=== PATIENT | male | born 1970 | race Caucasian/White ===

== ENCOUNTER 2017-04-14 16:42 | Emergency (ER) | payer BC ==
[~2017-04-14] VITALS: Ht 167.6 cm; Wt 80.0 kg
[~2017-04-14 16:42] MED LIST: ASPEC81 PO; TPRSR50 PO
[2017-04-14 16:44] VITALS: TEMP 37; Ht 167.6 cm; Wt 80.0 kg
[2017-04-14] MEDS ORDERED: SODIUM CHLORIDE 0.9% 1000ML 1,000 ML IV STA (17:34)
[2017-04-14] MEDS ORDERED: FAMOTIDINE 20MG/102 ML D5W IV STA (17:34)
[2017-04-14] MEDS ORDERED: GI COCKTAIL PO STA (17:34)
--- NOTE | 2017-04-14 17:43 | EMERGENCY ROOM VISIT NOTE ---
History Report prepared by Lorenza: Chani Calabrese Under the Supervision of: Dr. Ciro Bocanegra M.D. First contact with patient: 17:28 Chief Complaint: CARDIAC ASSESSMENT Stated Complaint: BURNING SENSATION IN CHEST,LIGHTHEADED,FEEL COLD Nursing Triage Summary: pt to the ED with c/o burning in chest light headed feeling woozy and neck felt puffy/pressure that started today no SOB History of Present Illness The patient is a 47 year old male who presents to the Emergency Room with complaints of a cardiac assessment today. The patient states that he has been having a heartburn sensation in his chest and swelling in the neck. The patient reports that the burning sensation in his chest is mild right now, and that he no longer feels the swelling in his neck. He also reports feeling fatigued but denies having a sore throat, nausea, and vomiting. The patient also denies light -headedness and dizziness. He reports that he also felt hypotensive and flush this week. He states that his is beginning to get sick. The patient states that he saw his scale attendant this week. The patient reports that he has atrial fibrillation and takes 50 mg of Metoprolol. He denies having a history of smoking, diabetes, major surgeries, and blood clots. He denies a family history of heart attacks. Source of History: patient Onset: today Position: other (global) Quality: other (cardiac assessment ) Associated Symptoms: + fatigue, No sorethroat, No nausea, No vomiting, No weakness (denies light-headedness and dizziness) Note: additional symptoms: burning sensation in his chest, swelling of neck Review of Systems See HPI for pertinent positives and negatives. A total of ten systems were reviewed and were otherwise negative. Past Medical & Surgical Medical Problems: (1) Atrial fibrillation with RVR Family History FH: hyperlipidemia Social History Smoking Status: Never Smoker Alcohol Use: occasionally Drug Use: none Marital Status: Housing Status: lives with family Occupation Status: unemployed Current/Historical Medications Scheduled Aspirin (Aspirin EC Low Dose), 81 MG PO QAM Metoprolol Succinate (Metoprolol Succinate ER), 50 MG PO QAM Allergies Coded Allergies: No Known Allergies (Unverified , 04/14/17) Physical Exam Vital Signs Date Time Temp Pulse Resp B/P (MAP) Pulse Ox O2 Delivery O2 Flow Rate FiO2 04/14/17 18:44 78 20 133/88 100 Room Air 04/14/17 18:43 100 Room Air 04/14/17 16:44 37.0 72 16 152/105 97 Room Air Physical Exam GENERAL: Awake, alert, well-appearing, in no distress HENT: Normocephalic, atraumatic. Oropharynx unremarkable. Dry mucous membranes. EYES: Normal conjunctiva. Sclera non-icteric. NECK: Supple. No nuchal rigidity. FROM. No JVD. RESPIRATORY: Clear to auscultation. CARDIAC: Regular rate, normal rhythm. Extremities warm and well perfused. Pulses equal. ABDOMEN: Soft, non-distended. No tenderness to palpation. No rebound or guarding. No masses. RECTAL: Deferred. MUSCULOSKELETAL: Chest examination reveals no tenderness. The back is symmetrical on inspection without obvious abnormality. There is no CVA tenderness to palpation. No joint edema. LOWER EXTREMITIES: Calves are equal size bilaterally and non-tender. No edema. No discoloration. NEURO: Normal sensorium. No sensory or motor deficits noted. SKIN: No rash or jaundice noted. Medical Decision & Procedures ER Provider Diagnostic Interpretation: X-ray: Per my interpretation, radiologist review. CHEST ONE VIEW PORTABLE CLINICAL HISTORY: CHEST PAIN pain COMPARISON STUDY: No previous studies for comparison. FINDINGS: The bones soft tissues and hemidiaphragms are normal. The cardiomediastinal silhouette is normal. The lungs are clear. The pulmonary vasculature is normal. IMPRESSION: Negative chest. The above report was generated using voice recognition software. It may contain grammatical, syntax or spelling errors. Electronically signed by: Gage Dominguez M.D. 04/14/2017 6:12 PM Dictated Date/Time: 04/14/2017 6:02 PM Laboratory Results 04/14/17 18:15 Red Blood Count 5.53, Mean Corpuscular Volume 81.9, Mean Corpuscular Hemoglobin 29.8, Mean Corpuscular Hemoglobin Concent 36.4, Mean Platelet Volume 9.6, Neutrophils (%) (Auto) 77.8, Lymphocytes (%) (Auto) 14.4, Monocytes (%) (Auto) 5.5, Eosinophils (%) (Auto) 2.1, Basophils (%) (Auto) 0.1, Neutrophils # (Auto) 5.46, Lymphocytes # (Auto) 1.01, Monocytes # (Auto) 0.39, Eosinophils # (Auto) 0.15, Basophils # (Auto) 0.01 04/14/17 18:15 Test 04/14/17 18:15 White Blood Count 7.03 K/uL (4.8-10.8) Red Blood Count 5.53 M/uL (4.7-6.1) Hemoglobin 16.5 g/dL (14.0-18.0) Hematocrit 45.3 % (42-52) Mean Corpuscular Volume 81.9 fL (80-100) Mean Corpuscular Hemoglobin 29.8 pg (25-34) Mean Corpuscular Hemoglobin Concent 36.4 g/dl (32-36) Platelet Count 213 K/uL (130-400) Mean Platelet Volume 9.6 fL (7.4-10.4) Neutrophils (%) (Auto) 77.8 % Lymphocytes (%) (Auto) 14.4 % Monocytes (%) (Auto) 5.5 % Eosinophils (%) (Auto) 2.1 % Basophils (%) (Auto) 0.1 % Neutrophils # (Auto) 5.46 K/uL (1.4-6.5) Lymphocytes # (Auto) 1.01 K/uL (1.2-3.4) Monocytes # (Auto) 0.39 K/uL (0.11-0.59) Eosinophils # (Auto) 0.15 K/uL (0-0.5) Basophils # (Auto) 0.01 K/uL (0-0.2) RDW Standard Deviation 38.1 fL (36.4-46.3) RDW Coefficient of Variation 12.7 % (11.5-14.5) Immature Granulocyte % (Auto) 0.1 % Immature Granulocyte # (Auto) 0.01 K/uL (0.00-0.02) Anion Gap 7.0 mmol/L (3-11) Est Creatinine Clear Calc Drug Dose 83.4 ml/min Estimated GFR () 92.8 Estimated GFR (Non- 80.1 BUN/Creatinine Ratio 7.7 (10-20) Calcium Level 9.3 mg/dl (8.5-10.1) Total Bilirubin 0.5 mg/dl (0.2-1) Direct Bilirubin 0.1 mg/dl (0-0.2) Aspartate Amino Transf (AST/SGOT) 17 U/L (15-37) Alanine Aminotransferase (ALT/SGPT) 36 U/L (12-78) Alkaline Phosphatase 61 U/L (45-117) Troponin I < 0.015 ng/ml (0-0.045) Total Protein 7.3 gm/dl (6.4-8.2) Albumin 4.3 gm/dl (3.4-5.0) Lipase 130 U/L (73-393) Laboratory results reviewed by me Medications Administered Medications (Trade) Dose Ordered Sig/Rich Route Start Time Stop Time Status Last Admin Dose Admin Sodium Chloride 1,000 ml @ 999 mls/hr Q1H1M STAT IV 04/14/17 17:34 04/14/17 18:34 DC 04/14/17 18:44 999 MLS/HR Famotidine (Pepcid 20mg/100 ml) 20 mg ONE STAT IV 04/14/17 17:34 04/14/17 17:39 DC 04/14/17 18:45 20 MG Miscellaneous Medication (Gi Cocktail) 24 ml NOW STAT PO 04/14/17 17:34 04/14/17 17:39 DC 04/14/17 18:45 24 ML ECG Indication: other (cardiac assessment) Rate (beats per minute): 62 Rhythm: sinus with SA Findings: no acute ischemic change, other (normal axis) ED Course 1729: The patient was evaluated in room B3B. A complete history and physical exam was performed. 1733: Ordered GI Cocktail 24 ml PO, Famotidine 20 mg IV, Sodium Chloride 1,000 ml @ 999 mls/hr IV. 1921: I updated the patient on his test results. He states that he feels fine. 1939: I reevaluated the patient. Discussed results and discharge instructions: He verbalized understanding and agreement. The patient is ready for discharge. Medical Decision I reviewed the patient's past medical history, medications, and the nursing notes as described above. Differentials include: gastritis, reflux, peptic ulcer , ACS, pericarditis, myocarditis, pneumonia, bronchitis, and arrhythmia. The patient is a 47 year old gentleman with a past medical history of paroxysmal atrial fibrillation in the past on beta juan and aspirin given low stroke risk this emergency department with chest pain per history of present illness. On arrival the patient is in no acute distress, afebrile stable vital signs. EKG unremarkable. Troponin negative in the setting of greater than 6 hours of symptoms. Heart score is 0, low risk. PERC negative. No DC depressions or ST elevations making pericarditis and myocarditis unlikely. Chest x-ray negative. Patient feeling improved after treatment. Findings and plan for follow-up d/w patient. Patient agreeable and d/c'd per discharge instructions. Medication Reconcilliation Current Medication List: was personally reviewed by me Blood Pressure Screening Patient's blood pressure: Normal blood pressure Impression Primary Impression: Chest pain Scribe Attestation The scribe's documentation has been prepared under my direction and personally reviewed by me in its entirety. I confirm that the note above accurately reflects all work, treatment, procedures, and medical decision making performed by me. Departure Information Dispostion Home / Self-Care Referrals No Doctor, Assigned (PCP) Forms IMPORTANT VISIT INFORMATION Patient Instructions Chest Pain - [facility], [facility] Additional Instructions Please follow up with your primary care physician in the next 1-3 days for re- evaluation. Your exam, EKG, chest xray, and lab results did not show signs of an emergent condition at this time. Return to the emergency department for worsening symptoms as described in the accompanying instructions.
--- NOTE | 2017-04-14 18:13 | DIAGNOSTIC IMAGING REPORT ---
CHEST ONE VIEW PORTABLE CLINICAL HISTORY: CHEST PAIN pain COMPARISON STUDY: No previous studies for comparison. FINDINGS: The bones soft tissues and hemidiaphragms are normal. The cardiomediastinal silhouette is normal. The lungs are clear. The pulmonary vasculature is normal. IMPRESSION: Negative chest. The above report was generated using voice recognition software. It may contain grammatical, syntax or spelling errors. Electronically signed by: Gage Dominguez M.D. 04/14/2017 6:12 PM Dictated Date/Time: 04/14/2017 6:02 PM
[2017-04-14] MEDS ORDERED: LIDOCAINE HCL 2% VISC SOLN 20 ML UDC ONE (18:37)
[2017-04-14] MEDS ORDERED: ALUMINUM/MAGNESIUM SUSP 30 ML UDC ONE (18:37)
[2017-04-14 18:39] LABS: BASO % 0.1 %; BASO ABS # 0.01 K/uL (0-0.2); COMPLETE YES; EOS % 2.1 %; HEMATOCRIT 45.3 % (42-52); IG% 0.1 %; LYMPH % 14.4 %; LYMPH ABS # 1.01 K/uL (1.2-3.4); MEAN CELL VOLUME 81.9 fL (80-100); MEAN CORPUSCULAR HEMOGLOBIN 29.8 pg (25-34); MEAN CORPUSCULAR HGB CONC 36.4 g/dl (32-36); MEAN PLATELET VOLUME 9.6 fL (7.4-10.4); MONO % 5.5 %; NEUT % 77.8 %; PLATELET COUNT 213 K/uL (130-400); RED BLOOD COUNT 5.53 M/uL (4.7-6.1); WHITE BLOOD COUNT 7.03 K/uL (4.8-10.8)
[2017-04-14 18:43] VITALS: O2SAT 100
[2017-04-14 18:44] VITALS: BP 133/88; PULSE 78; O2SAT 100
[2017-04-14 18:57] LABS: ALT/SGPT 36 U/L (12-78); BLOOD UREA NITROGEN 9 mg/dl (7-18); BUN/CREATININE RATIO 7.7 (10-20); CALCIUM 9.3 mg/dl (8.5-10.1); CARBON DIOXIDE 29 mmol/L (21-32); CHLORIDE 103 mmol/L (98-107); GLUCOSE 91 mg/dl (70-99); POTASSIUM 4.1 mmol/L (3.5-5.1); SODIUM 139 mmol/L (136-145)
[2017-04-14 19:02] LABS: ALKALINE PHOSPHATASE 61 U/L (45-117); AST/SGOT 17 U/L (15-37)
== END 2017-04-14 19:33 | disposition home or self-care (01) ==
LOC: C.EDB 16:43
DX: R07.9 Chest pain, unspecified (principal); I48.91 Unspecified atrial fibrillation; Z79.82 Long term (current) use of aspirin